=== PATIENT | female | born 1955 | race Caucasian/White ===

== ENCOUNTER → 2018-07-14 18:53 | Outpatient (CLI) | payer BC | END | disposition home or self-care (01) | LOC: D.MAMMO 11:30 | DX: R92.8 Other abnormal and inconclusive findings on diagnostic imaging of breast (principal) ==

== ENCOUNTER → 2019-01-12 16:47 | Outpatient (CLI) | payer BC | END | disposition home or self-care (01) | LOC: D.MAMMO 10:30 | PROVIDERS: ATTEND Family Medicine | DX: R92.8 Other abnormal and inconclusive findings on diagnostic imaging of breast (principal) ==

== ENCOUNTER → 2020-08-02 15:30 | Outpatient (CLI) | payer BC | END | disposition home or self-care (01) | LOC: D.MAMMO 15:30 | PROVIDERS: ATTEND Nurse Practitioner | DX: Z12.31 Encounter for screening mammogram for malignant neoplasm of breast (principal) ==